=== PATIENT | female | born 1930 | race Caucasian/White ===

== ENCOUNTER 2017-04-05 14:05 | Emergency (ER) | payer MEDICARE ==
[~2017-04-05] VITALS: Ht 157.5 cm; Wt 79.0 kg
[~2017-04-05 14:05] MED LIST: AMLO2.5T45 PO; ATOR20TA65 PO; CARV12.545 PO; CLOP75TA33 PO; SERT-112 PO
[2017-04-05 15:14] VITALS: BP 155/80
[2017-04-07] MEDS ORDERED: AMLO10TA80 PO (22:45)
[2017-04-07] MEDS ORDERED: ATOR10TA69 PO (22:46)
== END 2017-04-07 14:57 | disposition left against medical advice (07) ==
LOC: ER 15:08
DX: Z53.21 Procedure and treatment not carried out due to patient leaving prior to being seen by health care provider (principal)